=== PATIENT | female | born 1965 | race Caucasian/White ===

== ENCOUNTER → 2017-09-09 | Outpatient (CLI) | payer OTHER ==
[~2017-09-09] MED LIST: CIPR500T4 PO; LORTA5 PO; OS-CTAB3 PO; TAB-TAB PO
--- NOTE | 2017-09-11 08:27 | RSPPFT ---
DATE OF PROCEDURE: 09/09/17 COMMENTS: The forced vital capacity, FEV1, FEV1/FVC ratio and FEF 25-75 are all normal. No significant improvement is noted after bronchodilator. The total lung capacity and residual volumes are normal with a normal RV/TLC ratio. IMPRESSION: This is a normal pulmonary function study with no reversible component and a normal flow volume loop. The diffusion capacity when corrected is normal.
== END ==
LOC: HRSP 09:00
PROVIDERS: ATTEND Internal Medicine Cardiovascular Disease
DX: R06.02 Shortness of breath (principal)
CPT/HCPCS: 94060; 94726; 94729